=== PATIENT | male | born 1985 | race Hispanic/Latino ===

== ENCOUNTER 2017-08-10 19:45 | Inpatient (IN) | payer SELFPAY ==
[2017-08-10 20:32] LABS: Bilirubin Negative (Negative); Blood, Urine Large (Negative); Glucose, Urine (Dipstick) Negative (Negative); Ketone, Urine Trace mg/dL (Negative); Nitrite Negative (Negative); Protein, Urine (Dipstick) 100 mg/dL (Neg-Trace); Urobilinogen 0.2 mg/dL (0.2-1.0)
[2017-08-10 20:34] LABS: Bacteria/HPF None Seen HPF (None Seen); Hyaline Casts/LPF 0-3 HYALINE CAST LPF (0-3 Hyaline); RBC/HPF GREATER THAN 50-TNTC HPF (0-3); Squamous Epithelial 0-3 HPF (0-3)
[2017-08-10 21:09] LABS: #Eosinphils 0.1 thou/uL (0.0-0.7); #Lymphocytes 1.6 thou/uL (1.20-3.40); #Neutrophils 8.2 thou/uL (1.40-6.50); %Basophils 0.4 % (0.0-1.0); %Lymphocytes 14.8 % (21.0-51.0); %Monocytes 8.7 % (0.0-10.0); Hematocrit 39.8 % (42.0-52.0); Red Blood Cell (RBC) Count 4.58 mill/uL (4.70-6.10); White Blood Cell (WBC) Count 10.9 thou/uL (4.8-10.8)
[2017-08-10 21:32] LABS: ALT (SGPT) 17 U/L (8-55); AST (SGOT) 19 U/L (5-34); Alkaline Phosphatase 96 U/L (40-150); Anion Gap 11 mmol/L (10-20); BUN (Urea Nitrogen) 15 mg/dL (8.9-20.6); Bilirubin, Total 0.3 mg/dL (0.2-1.2); Calc. Creatinine Clearance 0 mL/min (70-130); Calcium 9.1 mg/dL (7.8-10.44); Carbon Dioxide 27 mmol/L (22-29); Chloride 100 mmol/L (98-107); Estimated GFR-MDRD Greater than 90; Globulin 2.9 g/dL (2.4-3.5); Lipase 42 U/L (8-78); Protein, Total 7.1 g/dL (6.0-8.3)
--- NOTE | 2017-08-10 22:21 | CT ---
NONCONTRAST ABDOMEN AND PELVIS CT: Indication: Right side abdominal pain. History or urolithiasis. FINDINGS: Imaged lung bases are clear. There is right nephrolithiasis involving the lower pole, and additional ly, there is a midright ureteral calculus that measures approximately 1 cm in diameter producing mod erate right side obstructive uropathy. No left side urolithiasis. Solid abdominal organs, bowel, lym ph nodes and vasculature are limited in assessment by noncontrast technique. There is moderate diste ntion of the urinary bladder. No free air. Osseous structures are intact. IMPRESSION: 1. Moderately obstructing 1 cm calculus at the mid right ureter. Recommend urologic consultation giv en the size of the ureteral calculus. 2. Right nephrolithiasis. POS: NWK
[2017-08-10] MEDS ORDERED: Morphine 2 MG/ML SYRINGE ONE (22:54)
[2017-08-10] MEDS ORDERED: Ondansetron HCl/PF 4 MG/2 ML Vial ONE (22:54)
[2017-08-11] MEDS ORDERED: Ondansetron ODT 4 MG TAB SL PRN (00:08)
[2017-08-11] MEDS ORDERED: Ondansetron HCl/PF 4 MG/2 ML Vial IVP PRN ×2 (00:08→15:49)
[2017-08-11] MEDS ORDERED: Morphine 2 MG/ML SYRINGE SLOW IVP PRN (00:08)
[2017-08-11 00:17] VITALS: BMI 27.3
[2017-08-11] MEDS: Sodium Chloride 0.9% 1,000 ML IV SCH ×2 (00:39→09:06)
[2017-08-11] MEDS ORDERED: cefTRIAXone\\ROCEPHIN 2 GM, Admixture Fee 1 EACH in Sodium Chloride 0.9% 100 ML IVPB SCH (09:00)
--- NOTE | 2017-08-11 09:45 | HP ---
DATE OF ADMISSION: 08/10/2017 ADMITTING PHYSICIAN: Desmond Mirza M.D. REASON FOR ADMISSION: Right ureteral stone with intractable pain. CHIEF COMPLAINT: \\\\"My right side hurts real bad\\\\". HISTORY OF PRESENT ILLNESS: Mr. Shanks is a 32-year-old male with a history of nephrolit hiasis who presented with a 1-day history of right-sided flank pain. He stated the pain started connie etime after lunch and started in his right back and started having increasing pain that started radi ating towards his right groin. He had no associated nausea, vomiting or fevers or chills. He did h ave gross hematuria. The pain became severe, rated at 10/10 and he was no longer able to keep it th is controlled. He figured this was likely a kidney stone as he has had kidney stones in the past an d has passed them on his own and never required any previous urologic surgeries. At the ER, a CT de monstrated a 1 cm proximal right ureteral stone with associated hydronephrosis. There was no eviden ce of urinary tract infection based on his urinalysis. The emergency room discussed the case with vj ng in because the patient's pain was not well controlled. [facility]. He also has a very low probability of spontaneous stone passage, given the st one size. On my discussion with the patient, he states that his pain is much better controlled this morning. His pain is currently a 1/10, but he still wishes to go forward with the surgery after I explained to him that the stone has extremely low probability of spontaneous stone passage. ALLERGIES: None. HOME MEDICATIONS: None. PAST MEDICAL HISTORY: Nephrolithiasis. PAST SURGICAL HISTORY: None. FAMILY HISTORY: Significant for stone disease in his uncle and possibly in his father as well. SOCIAL HISTORY: The patient denies any history of alcohol abuse, illicit drug use or tobacco use. REVIEW OF SYSTEMS: A 12-point review of systems is unremarkable other than what was commented on th e HPI, specifically pertinent positives include flank pain with hematuria. Pertinent negatives, the patient denies fevers or chills, nausea, vomiting, chest pain or shortness of breath. Remainder of 12-point review of systems was reviewed and otherwise negative. PHYSICAL EXAMINATION: VITAL SIGNS: Temperature 97.7, pulse 58, respirations 101/70, saturation is 98% on room air, and re spirations 14. GENERAL: No apparent distress, appears relatively comfortable, communicative, alert, well-nourished , well-developed, appears stated age. HEENT: Normocephalic and atraumatic. Sclerae are nonicteric. Pupils are symmetric and round. Ext raocular movements are intact. Hearing is good. Dentition is normal. Moist mucous membranes. Tra kenroy is midline. CARDIOVASCULAR: Sinus bradycardia, otherwise normal S1 and S2, regular rhythm. Symmetric pulses. CHEST: Clear anteriorly, nonlabored breathing. Symmetric expansion of lungs. ABDOMEN: Soft, nondistended, minimal tenderness on the right side, minimal right CVA tenderness, no rebound or guarding, no splenomegaly. Positive bowel sounds. No hernias. GENITOURINARY: Deferred at this time. EXTREMITIES: No clubbing, cyanosis or edema. MUSCULOSKELETAL: No joint deformities or joint erythema noted. Full range of motion in all extremi ties. No obvious inflammation within the hands. NEUROLOGIC: Cranial nerves II-XII appear grossly intact. No focal or motor sensory deficits identi fied. SKIN: Warm, dry, good turgor, no rashes. PSYCHIATRIC: Alert and oriented x3, appropriate mood and affect for situation. LABORATORY AND X-RAY FINDINGS: The full set of labs in the [facility] system, which I have reviewed. Of note, the patient's white count is 10.9 with a creatinine of 0.85, calcium of 9.1. Urinalysis d emonstrates nitrite negative with no bacteria seen, greater than 50 red cells, 11-20 white cells, [address] stone protocol performed on 08/10/2017 demonstrates a moderate obstructing 1-cm calcu adrianne in the mid to proximal right ureter with associated hydronephrosis. There was a small 1-2 mm as sociated right nephrolithiasis as well. No other stones seen. I have reviewed these images myself. ASSESSMENT AND PLAN: A 32-year-old male with an obstructing 1 cm proximal right stone with an associated 1-2 mm stone on the right side. The patient is extremely low probability of spontane ously passing a stone of this size around 2%. I have discussed this with the patient and told him t hat while it is not imperative to do the surgery immediately. He will likely require surgical proce dure at some point. He could either proceed forward with extracorporeal shock wave lithotripsy at a different date as the machine for shockwave lithotripsy is not here currently or we could proceed w ith ureteroscopy today as we do not have the laser here for another procedure. He does not have any evidence of infection and I think it would be safe to proceed forward with ureteroscopy. After dis cussing his options, he has elected to proceed forward with ureteroscopy today so he can be finished for this procedure and have the stone removed. I told him I can also remove the 1-2 mm stone on hi s right kidney as well. Given that we will be up with ureteroscope on the same side. He will likel y require stent afterwards for anywhere from 1-2 weeks depending on the amount of edema and inflamma tion within the ureter. I have also recommended after completion of his surgery that he undergo sto ne metabolic workup to help identify the reason he is getting stones and avoid further stone disease and discussed the risks and benefits of the surgery, the risks which include but are not limited to bleeding, infection, damage to ureteral stricture, inability to reach the stone, need to place a st ent and coming back at different day for further surgery, incomplete stone removal, and damage to th e bladder, kidneys or urethra. He understands these risks and wishes to proceed forward with ureter oscopy with laser lithotripsy, basket extraction of stone, and placement of a stent. SUMMARY OF PLAN: 1. N.p.o. 2. IV pain medication. 3. IV fluids. 4. To operating room today for right-sided ureteroscopy, laser lithotripsy, basket extraction of st one, and placement of a stent. 5. Can be discharged after surgery, assuming everything goes well. 6. We will benefit from a stone metabolic workup in the future.
[2017-08-11] MEDS ORDERED: Midazolam HCl 2 mg/2 ml Vial ONE (14:11)
[2017-08-11] MEDS ORDERED: Fentanyl 250 MCG/5 ML VIAL ONE (14:11)
[2017-08-11] MEDS ORDERED: Iothalamate Meglumine 60% 50 ML VIAL FS ONE (14:39)
[2017-08-11] MEDS ORDERED: Lidocaine 1% PF 5 ML VIAL ONE (14:47)
[2017-08-11] MEDS ORDERED: Propofol 200 MG/20 ML VIAL ONE (14:47)
[2017-08-11] MEDS ORDERED: Glycopyrrolate 0.2 MG/ML 5 ML SYRINGE ONE (14:47)
[2017-08-11] MEDS ORDERED: Ondansetron HCl/PF 4 MG/2 ML Vial ONE (14:47)
[2017-08-11] MEDS ORDERED: Promethazine HCl 25 MG/ML VIAL SLOW IVP PRN (15:49)
[2017-08-11] MEDS ORDERED: Promethazine HCl 25 MG/ML VIAL IM PRN (15:49)
[2017-08-11] MEDS ORDERED: Fentanyl 100 MCG/2 ML VIAL ONE (16:18)
--- NOTE | 2017-08-11 17:41 | RAD ---
RETROGRADE PYELOGRAM: 08/11/17 HISTORY: Right sided stent placement, right stone extraction. FINDINGS: Single radiograph during retrograde pyelogram provided. No contrast media is present. there is a ike ble-J ureteral stent on the right. IMPRESSION: Right double-J ureteral stent present. POS: CLAUDIA
[2017-08-11] MEDS ORDERED: HYDROcodone/Acetaminophen 5/325 mg Tablet PO PRN ×2 (18:06)
[2017-08-11] MEDS ORDERED: Oxybutynin 5 MG TAB PO PRN (18:06)
[2017-08-11 18:08] VITALS: BP 122/75; TEMP 97.6
[2017-08-11] MEDS: Phenazopyridine HCl 97.5 MG TABLET PO SCH ×2 (18:55→19:00)
--- NOTE | 2017-08-11 19:25 | OP ---
DATE OF PROCEDURE: 08/11/2017 SERVICE: Urology. SURGEON: Desmond Mirza M.D. PREOPERATIVE DIAGNOSIS: Right ureteral stone. POSTOPERATIVE DIAGNOSIS: Right ureteral stone. PROCEDURE PERFORMED: Right ureteroscopy, laser lithotripsy of stone, basket extraction of stone, an d placement of a 6 x 26 double-J stent. INDICATIONS FOR PROCEDURE: Mr. Dimitris Chawla is a 32-year-old male who initially prese nted to the emergency room with right-sided flank pain demonstrating a 1 cm stone. His pain was rel atively well controlled, but due to the low probability of spontaneous stone passage, I recommended intervention. He elected to proceed with intervention now. Risks and benefits have been discussed and he agreed to proceed forward. DESCRIPTION OF PROCEDURE: After identification of arm band and verification of consent, the patient was brought back to the operating room where he underwent general anesthesia with endotracheal intu bation. He was then placed in dorsal lithotomy position and prepped and draped in the usual sterile fashion. After appropriate timeout, lubricated 22 Lao rigid cystoscope was used per urethra int o the bladder and attention turned to the right ureteral orifice. The prostate was nonobstructive. The urethra was unremarkable without strictures. The bladder did not show any significant trabecul ations or abnormality. There were no stones in the bladder and both ureters in the orthotopic locat ion. A 0.035 sensor wire was then advanced through the right ureteral orifice to the level of the s tone. It did require some manipulation, but I was able to navigate the wire past the stone up into the renal pelvis. The cystoscope was then removed after draining the bladder, leaving the sensor wi re in place. A dual-lumen catheter was then advanced over the sensor wire to the level of the midur eter. The stone could be seen on fluoroscopy and therefore, this was used as a guide to stop advanc ing the dual lumen. A Amplatz Super Stiff wire was then advanced through the second lumen of the du al lumen wire and attempt to pass the stone, but due to the stone size, I was not able to advance pa st the stone. Therefore, the Super Stiff wire was left in place at the level of the stone and the d ual lumen removed. An 11/13 x 36 cm ureteral access sheath was then advanced over the Super Stiff w luis to the level of the stone and the inner cannula and the Super Stiff wire were then removed leavi ng the outer sheath and the sensor wire in place as a safety wire. A flexible digital ureteroscope was then passed through the ureteral access sheath into the ureter to where the stone was identified . It was relatively soft yellow stone, likely calcium oxalate dihydrate with possible calcium phosp hate elements. The 200 micron laser fiber was then used to dust the stone and also fragmented into small pieces. Most of the pieces blew up into the kidney and went into the kidney with the 0 tip ni tinol basket to retrieve the stone. All stone fragments were removed from the ureteroscopy and the additional 1-2 mm stone which had been seen on the CT scan was also removed which was in a separate wen. Upon final pyeloscopy, there did not appear to be any additional stone elements that were si gnificant within the kidney. There were some fine dust granules in pieces about 1 mm in size or les s. Pull back ureteroscopy was then employed and no additional stones were seen within the ureter. Satisfied that the ureteroscope was then removed with the ureteral access sheath, the cystoscope was then backloaded over the sensor wire back into the bladder. A 6 x 26 double-J stent was then advan makayla over the sensor wire to the level of the renal pelvis. The wire was then removed leaving a good curl in the renal pelvis and good curl in the bladder. The bladder was then emptied and the cystos cope removed. The patient was then awakened and taken to PACU for recovery in stable condition. COMPLICATIONS: None. ESTIMATED BLOOD LOSS: Minimal. RETAINED TUBES AND DRAINS: A 6 x 26 double-J stent on the right. SPECIMENS: Stone for stone analysis. DISPOSITION: The patient will be discharged home and follow up with me in approximately 1 week for cystoscopy and stent removal as he does not have a string on the stent.
[2017-08-12] MEDS ORDERED: FLU VACC QS2017-18 36 mo. & older 0.5 ML SYRINGE IM ONE (09:00)
[2017-08-12] MEDS ORDERED: Phenazopyridine HCl 97.5 MG TABLET PO SCH (09:00)
== END 2017-08-11 19:15 | disposition home or self-care (01) | DRG 669 ==
LOC: ERS 19:45 → SURG A 08-11 00:10
PROVIDERS: ADMIT Urology; ATTEND Urology
PROC: 0TC68ZZ Extirpation of Matter from Right Ureter, Via Natural or Artificial Opening Endoscopic (ICD-10-PCS; principal; 2017-08-11)
PROC: 0T768DZ Dilation of Right Ureter with Intraluminal Device, Via Natural or Artificial Opening Endoscopic (ICD-10-PCS; 2017-08-11)
DX: N13.2 Hydronephrosis with renal and ureteral calculous obstruction (principal)
CPT/HCPCS: 36415; 74176; 74420; 80053; 81003; 81015; 82365; 83690; 85025; 88300; 96374; 96375; C1758; C1769; J0696; J2001; J2250; J2270; J2405; J2704; J3010; J7050; Q9961